=== PATIENT | male | born 1995 | race Caucasian/White ===

== ENCOUNTER 2023-09-14 15:07 | Emergency (ER) | payer SELFPAY ==
[2023-09-14 15:12] VITALS: BP 166/105
--- NOTE | 2023-09-14 15:34 | ED.GENMED ---
History of Present Illness
General
Chief Complaint: Skin Surface Trauma
Source: patient
Exam Limitations: none
Time Seen by Provider: 09/14/23 15:19
Nursing documentation reviewed up to this point in time: agreed with
History of Present Illness
History of Present Illness:
PT IS A 28 Y/O M right hand dominant
h/o slepe apnea
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
was slicing a pepper and the knife slipped
tetanus unknown
no numbness/tingling/weknaess, blededing
Past History
Past History
ED Past Medical History: Other (sleep apnea)
ED Past Surgical History: None
Patient has exhibited threatening behavior?: No
Social History
Tobacco: Smoker
Alcohol: Occasional
Drug: None
Personal: Single
Living: with family
Employment: Employed
Family History
Family History: Other (Breathing problems and sleep apnea)
Review of Systems
Review of Systems
Allergies reviewed?: Yes
All Other Systems: Not applicable
Phy Exam
Physical Exam
Physical Exam:
GENERAL: Alert , in no apparent distress, comfortable at rest
HEAD: NCAT
CV: 2+ radial pulse, cap refill thumb intact left
NEUROLOGICAL: Alert and oriented, no focal neuro deficits, , 5/5 strength, sensation intact, ambulation slight limp right leg
SKIN: Warm and dry, arc shaped/flap laceration 1.5 cm left thumb;
bleeding onctrolled
not involving nail p,late
MUSCULOSKELETAL:distal left thumb arc shaped flap laceration, bleeding controlled
full rom
sesnation grossly intact
PSYCH: Normal and appropriate interaction.
Course
Orders/Labs/Results
Orders:
Orders
09/14/23 15:34
Tetanus/Diphth/Acelpertussis [Adacel] 0.5 ml IM .ONCE ONE
Vital Signs
Initial and Last Documented VS:
Initial Vital Signs
Temp Pulse Resp BP Pulse Ox
98.6 F 87 16 166/105 98
09/14/23 15:12 09/14/23 15:12 09/14/23 15:12 09/14/23 15:12 09/14/23 15:12
Last Documented Vital Signs
Temp Pulse Resp BP Pulse Ox
98.6 F 87 16 166/105 98
09/14/23 15:12 09/14/23 15:12 09/14/23 15:12 09/14/23 15:12 09/14/23 15:12
Procedures
Laceration Closure
Left Thumb:
Status of Wound: clean
Size of Wound in cm: 1.5
Description of Wound Edges: flap-well vascularized
Preparation: cleaned with saline
Anesthesia: 1% Lidocaine
Revision/Debridement: routine- no revision
Wound exploration: extensive cleaning of contaminated wound
Type of Closure: single layer closure
Skin Closure Material: 5-0 nylon
Number of sutures: 5
MDM/Problems Addressed
Differential Diagnosis Includes:
laceration
MDM/Problems Addressed:
28 y/o M with right hand dominance here with left thumb laceration
irrigated
anesthetized
closed with sutures
tetanus updated
dressed
*Critical Care Note
Total Time (30-74mins, 75-104mins- exclusive of procedures): Not Applicable
ED Attending Note
-
Portions of this chart may have been created with voice recognition software.� Occasional wrong word or��sound alike� substitutions may have occurred due to the inherent limitations of voice recognition software.
Discharge Plan
Departure
Patient Disposition: Home (Routine Discharge)
Date of Disposition: 09/14/23
Time of Disposition: 16:05
Patient with high blood pressure during this ER visit?: No
Condition: Fair
Discharge Problem:
Laceration of left thumb
Instructions: Laceration Repair With Stitches (DC), BLOOD PRESSURE
Prescriptions:
No Action
albuterol sulfate [Proventil HFA] 90 MCG/PUFF HFA aerosol inhaler
1 puff inhalation Q4HPRN PRN (Reason: shortness of breath) Qty: 1 0RF
Stand Alone Forms: Return to Work
Activity Restrictions/Additional Instructions:
KEEP THE WOUND CLEAN AND DRY FOR 24 HOURS
AFTER THAT YOU CAN GET IT WET IN THE BATH/SHOWER ONCE A DAY AND MAKE SURE IT IS CLEAN AND THERE IS NO DRIED BLOOD ON THE STITCHES
APPLY NEOSPORIN AND A BANDAID
THE STITCHES NEED TO BE REMOVED IN ABOUT 7-10 DAYS, SEE YOUR DOCTOR FOR THIS.
THE LAST DAY BEFORE STITCHES OUT, NO OINTMENT, LEAVE OPEN TO AIR
WATCH FOR SIGNS OF INFECTION AND RETURN NEEDED FOR PAIN, SWELLING, REDNESS, DRAINAGE, BLEEDING.
TYLENOL NEEDED FOR PAIN.
YOUR BLOOD PRESSURE WAS ELEVATED
MAKE SURE TO FOLLOW UP WITH YOUR DOCTOR
Interventions
Interventions:
*Risk Screen - Suicide Last Done: 09/14/23 15:28
*General Assessment Last Done: 09/14/23 15:28
*Neglect/Abuse Screening Last Done: 09/14/23 15:28
ED-Skin Assessment Last Done: 09/14/23 15:28
Discharge Date and Time
Print Language: [place]
[2023-09-14] MEDS: ADACEL 0.5 ML IM (15:43)
== END 2023-09-14 16:08 | disposition home or self-care (01) ==
LOC: EMR 15:07
PROVIDERS: EMERGENCY PHYSICIAN Emergency Medicine; FAMILY PHYSICIAN Nurse Practitioner Pediatrics
DX: S61.012A Laceration without foreign body of left thumb without damage to nail, initial encounter (principal); W26.0XXA Contact with knife, initial encounter; Z23 Encounter for immunization; G47.30 Sleep apnea, unspecified; F17.200 Nicotine dependence, unspecified, uncomplicated
CPT/HCPCS: 99282; 12001; 90471; 90715